=== PATIENT | male | born 1995 ===

== ENCOUNTER 2017-03-09 23:18 | Emergency (ER) | payer SELFPAY ==
[~2017-03-09] VITALS: Ht 170.2 cm; Wt 129.5 kg
[2017-03-09 23:21] VITALS: Ht 170.2 cm; Wt 129.5 kg
== END 2017-03-10 00:50 | disposition left against medical advice (07) ==
LOC: FTE 23:18 → E/R 03-10 00:50
DX: Z53.21 Procedure and treatment not carried out due to patient leaving prior to being seen by health care provider (principal)